=== PATIENT | male | born 1990 | race Caucasian/White ===

== ENCOUNTER 2018-12-11 17:58 | Emergency (ER) | payer OTHER ==
[2018-12-11 18:03] VITALS: BP 109/76; PULSE 78; TEMP 98.7; BMI 21.8
--- NOTE | 2018-12-11 18:40 | PDOC ---
History of Present Illness - General Chief Complaint: Back Pain Stated Complaint: BODY PAIN Time Seen by Provider: 12/11/18 18:00 History Source: Patient Exam Limitations: Clinical Condition - History of Present Illness Initial Comments: 12/11/18 18:33 Patient with no significant past medical history present with complaint of one month history of intermittent right-sided chest and lower rib pain. Patient plays basketball and denies trauma to chest or ribs. Patient also reported intermittent cramping right thigh pain radiating down to right leg and small area of redness to in the thigh area over 3 months. Denies numbness or tingling sensation. Denies increased pain with ambulation denies claudication or calf pain. Denies chest pain, shortness of breath or any other symptoms. Patient was in the ED 2 years ago with same complains requesting full work-up with no findings. Timing/Duration: other (1 month) Past History - Past Medical History Allergies/Adverse Reactions: Allergies Allergy/AdvReac Type Severity Reaction Status Date / Time No Known Allergies Allergy Verified 05/29/16 21:17 Home Medications: Ambulatory Orders Ibuprofen 800 mg PO Q8H PRN #20 tablet 12/11/18 Methocarbamol [Robaxin -] 500 mg PO BID #14 tablet 12/11/18 Mupirocin Ointment [Bactroban 2% Ointment -] 1 applic TP BID 7 Days #1 tube 06/21 COPD: No - Surgical History Appendectomy: No - Immunization History Immunization Up to Date: No - Suicide/Smoking/Psychosocial Hx Smoking History: Former smoker Have you smoked in the past 12 months: Yes Number of Cigarettes Smoked Daily: 0 If you are a former smoker, when did you quit?: HOOKAH ON OCCASION Cigars Per Day: 0 Information on smoking cessation initiated: No Hx Alcohol Use: No Drug/Substance Use Hx: Yes Substance Use Type: None Review of Systems - Review of Systems Able to Perform ROS?: Yes Is the patient limited Turkmen proficient: No Constitutional: No: Fever, Malaise, Weakness HEENTM: No: Symptoms Reported, See HPI, Eye Pain, Blurred Vision, Tearing, Recent change in vision, Double Vision, Cataracts, Ear Pain, Ocular Prothesis, Ear Discharge, Nose Pain, Nose Congestion, Tinnitus, Nose Bleeding, Hearing Loss , Throat Pain, Throat Swelling, Mouth Pain, Dental Problems, Difficulty Swallowing, Mouth Swelling, Other Respiratory: No: Symptoms reported, See HPI, Cough, Orthopnea, Shortness of Breath, SOB with Exertion, SOB at Rest, Stridor, Wheezing, Productive cough, Hemoptysis, Other Cardiac (ROS): No: Symptoms Reported, See HPI, Chest Pain, Edema, Irregular Heart Rate, Lightheadedness, Palpitations, Syncope, Chest Tightness, Other ABD/GI: No: Nausea, Vomiting Musculoskeletal: Yes: See HPI, Muscle Pain (left thigh cramping pain), Other ( right lower ribs pain radiating to back). No: Muscle Weakness Integumentary: No: Change in Color, Flushing Neurological: No: Headache, Numbness, Paresthesia, Tingling, Dizziness All Other Systems: Reviewed and Negative *Physical Exam - Vital Signs Last Vital Signs Temp Pulse Resp BP Pulse Ox 98.7 F 78 18 109/76 99 12/11/18 18:01 12/11/18 18:01 12/11/18 18:01 12/11/18 18:01 12/11/18 18:01 - Physical Exam Comments: 12/11/18 18:37 GENERAL: Well developed, well nourished. Awake and alert. No acute distress. HEENT: Normocephalic, atraumatic. PERRLA, EOMI. No conjunctival pallor. Sclera are non- icteric. Moist mucous membranes. Oropharynx is clear. NECK: Supple. Full ROM. No JVD. Carotid pulses 2+ and symmetric, without bruits. No thyromegaly. No lymphadenopathy. CARDIOVASCULAR: Regular rate and rhythm. No murmurs, rubs, or gallops. Distal pulses are 2+ and symmetric. PULMONARY: No evidence of respiratory distress. Lungs clear to auscultation bilaterally. No wheezing, rales or rhonchi. ABDOMINAL: Soft. Non-tender. Non-distended. No rebound or guarding. No organomegaly. Normoactive bowel sounds. MUSCULOSKELETAL Normal range of motion at all joints. mild tenderness to right lower ribcage. EXTREMITIES: No cyanosis. No clubbing. No edema. No calf tenderness. negative horman's sign SKIN: Warm and dry. Normal capillary refill. small area of 1cm localized erythema with mild hard induration c/w follicultis of left inner thigh area. No cyanosis. No increased warmth to left LE or calf muscle. NEUROLOGICAL: Alert, awake, appropriate. No motor deficits in the in lower extremities. Normoreflexic in the upper and lower extremities. Normal speech. Toes are down- going bilaterally. Gait is normal without ataxia. PSYCHIATRIC: Cooperative. Good eye contact. Appropriate mood and affect. General Appearance: Yes: Nourished, Appropriately Dressed. No: Apparent Distress ED Treatment Course - RADIOLOGY Radiology Studies Ordered: Category Date Time Status CHEST PA & LAT [RAD] Stat Radiology 12/11/18 18:31 Ordered RIBS RIGHT SIDE [RAD] Stat Radiology 12/11/18 18:31 Ordered Medical Decision Making - Medical Decision Making 12/11/18 18:40 Patient with no significant past medical history present with complaint of over 1 month history of intermittent right rib pain left lower extremity with small area of redness to skin of left in left thigh area Patient was seen 2 years ago for same symptoms and requesting ultrasound to rule out DVT as he was told by a friend he might have DVT. No calf tenderness, increased erythema or swelling to left lower extremity. Negative Homans sign of bilateral extremity. No evident of DVT on exam. small area of 1cm localized erythema with mild hard induration c/w follicultis of left inner thigh area. Mild tenderness to right lower rib cage. No bruising or ecchymosis to area. Symptoms likely muscle spasm with right costochondritis from strain from playing basketball. X-ray of chest and rib series ordered to rule out acute pathology patient with discharged home on NSAIDs and muscle relaxer if negative x-ray 12/11/18 19:13 x-rays of chest and rib rib series shows no acute pathology. Patient stable for discharge with PCP follow-up *DC/Admit/Observation/Transfer Diagnosis at time of Disposition: Chest discomfort, Muscle spasm, Folliculitis - Discharge Dispostion Disposition: HOME Condition at time of disposition: Stable Decision to Admit order: No - Prescriptions Prescriptions: Ibuprofen 800 mg PO Q8H PRN #20 tablet PRN Reason: pain Methocarbamol [Robaxin -] 500 mg PO BID #14 tablet Mupirocin Ointment [Bactroban 2% Ointment -] 1 applic TP BID 7 Days #1 tube - Referrals - Patient Instructions Printed Discharge Instructions: Nocturnal Leg Cramps, DI for Costochondritis Additional Instructions: Your chest and ribs x-rays was normal. Your symptoms likely from musculoskeletal pain. Use prescribed topical cream twice per day on in-grown hair in thigh area. Take medications as prescribed. Follow-up with PCP - Post Discharge Activity
== END 2018-12-11 19:16 | disposition home or self-care (01) ==
LOC: JERFT 17:58
DX: R07.89 Other chest pain (principal); M62.838 Other muscle spasm; L73.9 Follicular disorder, unspecified; Z87.891 Personal history of nicotine dependence
CPT/HCPCS: 71046-TC-FY; 71101-TC-RT-FY; 99281-25

== ENCOUNTER 2019-09-30 05:31 | Emergency (ER) | payer OTHER ==
[2019-09-30] MEDS ORDERED: KETOROLAC TROMETHAMINE 60 MG/2 ML VIAL ONE (05:39)
--- NOTE | 2019-09-30 05:42 | PDOC ---
History of Present Illness - General Chief Complaint: Pain, Acute Stated Complaint: INJURY TO LEFT KNEE PLAYING BASKETBALL Time Seen by Provider: 09/30/19 05:37 History Source: Patient Exam Limitations: No Limitations - History of Present Illness Initial Comments: 09/30/19 05:38 This is a 29-year-old male who comes in complaining of left knee pain. Patient was playing basketball about 8 hours ago when developed acute pain after feeling a pop in his knee secondary to stopping quickly. Patient said since then he has had pain in his knee with difficulty ambulating. Patient did not take anything for the pain. Allergies: as per nursing notes Past Medical History: none Social history: Lives with family. No smoking. No alcohol. No illicit drugs. Surgical history: None General: No fevers or chills, no weakness, no weight loss HEENT: No change in vision. No sore throat,. No ear pain CardioVascular: no chest discomfort. No shortness of breath Respiratory:No cough, or wheezing. Gastrointestinal: no nausea, vomiting, diarrhea or constipation, No rectal bleeding Genitourinary: No dysuria, hematuria, or frequency Musculoskeletal: No joint or muscle pain or swelling Neurologic: No headache, vertigo, dizziness or loss of consciousness Psychiatric: nor depression Skin: No rashes or easy bruising Endocrine: no increased thirst or abnormal weight change Allergic: no skin or latex allergy All other systems reviewed and normal GENERAL: The patient is awake, alert, and fully oriented, in no acute distress. HEAD: Normal with no signs of trauma. EYES: Pupils equal, round and reactive to light, extraocular movements intact, sclera anicteric, conjunctiva clear. EXTREMITIES:atraumatic, Normal range of motion, no edema. Left knee: There is minimal swelling to the knee with diffuse tenderness . Neurovascular distally is intact. There is marked decreased range of motion secondary to pain. NEUROLOGICAL: Normal speech, normal gait. PSYCH: Normal mood, normal affect. SKIN: Warm, Dry, normal turgor, no rashes or lesions noted. Assessment and plan: This is a 29-year-old male with left knee pain secondary to injuring her right playing basketball. Patient had x-ray done that was negative for any acute pathology. Patient given a knee immobilizer and crutches and orthopedic follow-up. Past History - Past Medical History Allergies/Adverse Reactions: Allergies Allergy/AdvReac Type Severity Reaction Status Date / Time No Known Allergies Allergy Verified 09/30/19 05:34 Home Medications: Ambulatory Orders Naproxen [Naprosyn] 500 mg PO BID #28 tablet 09/30/19 COPD: No - Surgical History Appendectomy: No - Immunization History Immunization Up to Date: No - Psycho Social/Smoking Cessation Hx Smoking History: Former smoker Have you smoked in the past 12 months: Yes Number of Cigarettes Smoked Daily: 0 If you are a former smoker, when did you quit?: HOOKAH ON OCCASION Cigars Per Day: 0 Hx Alcohol Use: No Drug/Substance Use Hx: Yes Substance Use Type: None Discharge - Discharge Information Problems reviewed: Yes Clinical Impression/Diagnosis: Acute traumatic internal derangement of left knee Qualifiers: Encounter type: initial encounter Qualified Code(s): S83.105A - Unspecified dislocation of left knee, initial encounter Condition: Stable Disposition: HOME - Admission No - Additional Discharge Information Prescriptions: Naproxen [Naprosyn] 500 mg PO BID #28 tablet - Follow up/Referral Referrals: Corbin Rowland MD [Staff Physician] - - Patient Discharge Instructions Additional Instructions: Wear your knee immobilizer and use your crutches for walking. For the pain take naproxen 1 tablet twice a day with food Return to the emergency department immediately with ANY new, persistent or worsening symptoms. Continue any medications as previously prescribed by your physician. You should follow up with your primary doctor as soon as possible regarding today's emergency department visit. . Please make sure your doctor reviews the results of your emergency evaluation. Thank you for coming to the Emergency Department today for your care. It was a pleasure to see you today. Please note that your evaluation is INCOMPLETE until you follow-up with your doctor. - Post Discharge Activity
[2019-09-30 05:43] VITALS: BP 102/55; PULSE 77; TEMP 98.9; BMI 23.1
[2019-09-30] MEDS ORDERED: KETOROLAC TROMETHAMINE 60 MG/2 ML VIAL IM ONE (05:43)
== END 2019-09-30 06:37 | disposition home or self-care (01) ==
LOC: FER 05:31
PROC: 2W3MX1Z Immobilization of Left Lower Extremity using Splint (ICD-10-PCS; principal; 2019-09-30)
PROC: 3E0233Z Introduction of Anti-inflammatory into Muscle, Percutaneous Approach (ICD-10-PCS; 2019-09-30)
DX: S83.105A Unspecified dislocation of left knee, initial encounter (principal); Y93.67 Activity, basketball; Y92.9 Unspecified place or not applicable; Z87.891 Personal history of nicotine dependence
CPT/HCPCS: 29345; 73560-TC-LT-FY; 96372; 99281-25